=== PATIENT | male | born 1955 | race Caucasian/White ===

== ENCOUNTER 2021-09-03 06:11 | Day surgery (SDC) | payer MEDICARE, MEDICAID ==
[2021-08-31 15:43] LABS: COVID AG,FIA SOURCE NASOPHARYNGEAL
[~2021-09-03] VITALS: Ht 182.9 cm; Wt 104.5 kg
[2021-09-03] MEDS ORDERED: BENZOCAINE 20% 50 MCG/SPRAY 57 GM TP ONE (06:12)
[2021-09-03] MEDS ORDERED: LIDOCAINE 2% 30 ML JELLY TP ONE (06:12)
[2021-09-03] MEDS ORDERED: LIDOCAINE 4% 50 ML SOLUTION TP ONE (06:12)
[2021-09-03] MEDS ORDERED: SODIUM CHLORIDE 0.9% 1,000 ML IV ONE (06:30)
[2021-09-03] MEDS ORDERED: SODIUM CHLORIDE 0.9% 1,000 ML ONE (06:49)
[2021-09-03] MEDS ORDERED: AMLO-258 PO (07:08)
[2021-09-03] MEDS ORDERED: LISI-894 PO (07:08)
[2021-09-03] MEDS ORDERED: SITA100 PO (07:08)
[2021-09-03] MEDS ORDERED: APIX5TAB PO (07:08)
[2021-09-03] MEDS ORDERED: CARV3 PO (07:08)
[2021-09-03] MEDS ORDERED: FURO40 PO (07:08)
[2021-09-03] MEDS ORDERED: ASPI-1450 PO (07:08)
[2021-09-03] MEDS ORDERED: ATOR40TA28 PO (07:08)
[2021-09-03] MEDS ORDERED: RANO500T3 PO (07:08)
[2021-09-03 07:36] LABS: GLUCOMETER DEV NAME(LOC) SDS.; GLUCOSE,POINT OF CARE 191 MG/DL (70-110)
[2021-09-03] MEDS ORDERED: MIDAZOLAM HCL 5 MG/ML VIAL ONE (07:48)
[2021-09-03] MEDS ORDERED: FentaNYL CITRATE PF 100 MCG/2 ML VIAL ONE (07:48)
[2021-09-03] MEDS ORDERED: MethylPREDNISolone SOD SUCC 125 MG/2 ML VIAL IVP ONE (09:45)
[2021-09-03] MEDS ORDERED: MethylPREDNISolone SOD SUCC 125 MG/2 ML VIAL ONE (09:54)
[2021-09-03] MEDS ORDERED: OXYGEN THERAPY IH SCH (20:00)
== END 2021-09-03 12:00 | disposition home or self-care (01) ==
LOC: SURGERY 06:11
PROVIDERS: ATTEND Internal Medicine Critical Care Medicine
DX: J38.4 Edema of larynx (principal); B37.0 Candidal stomatitis; Z79.899 Other long term (current) drug therapy; Z98.890 Other specified postprocedural states; Z87.01 Personal history of pneumonia (recurrent); I10 Essential (primary) hypertension; E11.9 Type 2 diabetes mellitus without complications
CPT/HCPCS: 31623; 31624; 71045; 82962; 87015; 87070; 87101; 87206; 87220; 87426; 88112; 88184; 88185; 88312; 93005; C9803; J2250; J2930; J3010; J7030; Z7610